=== PATIENT | male | born 1995 | race Hispanic/Latino ===

== ENCOUNTER 2018-09-25 03:15 | Inpatient (IN) | payer BC ==
[2018-09-25] MEDS ORDERED: Fentanyl 100 MCG/2 ML VIAL ONE ×2 (03:19→12:16)
[2018-09-25 03:40] LABS: #Eosinphils 0.2 thou/uL (0.0-0.7); #Lymphocytes 2.6 thou/uL (1.20-3.40); #Monocytes 1.1 thou/uL (0.11-0.59); #Neutrophils 9.4 thou/uL (1.40-6.50); %Basophils 0.2 % (0.0-1.0); %Eosinophils 1.4 % (0.0-10.0); %Lymphocytes 19.6 % (21.0-51.0); %Monocytes 8.3 % (0.0-10.0); %Neutrophils 70.6 % (42.0-75.0); Hemoglobin 15.6 g/dL (14.0-18.0); Mean Corpuscular HGB CONC 33.8 g/dL (32.0-36.0); Mean Corpuscular Hemoglobin 27.9 pg (27.0-31.0); Mean Corpuscular Volume 82.6 fL (78.0-98.0); Mean Platelet Volume 7.4 fL (7.4-10.4); Platelet Count 280 thou/uL (130-400); RBC Distribution Width 12.2 % (11.5-14.5); Red Blood Cell (RBC) Count 5.59 mill/uL (4.70-6.10); White Blood Cell (WBC) Count 13.3 thou/uL (4.8-10.8)
[2018-09-25] MEDS ORDERED: Ketamine 50 MG/ML (10ML VIAL) ONE (03:52)
[2018-09-25] MEDS ORDERED: Propofol 500 MG/50 ML VIAL ONE (03:52)
[2018-09-25 04:04] LABS: ALT (SGPT) 12 U/L (8-55); AST (SGOT) 18 U/L (5-34); Albumin 4.7 g/dL (3.5-5.0); Alcohol Less than 10 mg/dL (Less than 10); Alkaline Phosphatase 85 U/L (40-150); Anion Gap 15 mmol/L (10-20); BUN (Urea Nitrogen) 17 mg/dL (8.9-20.6); Bilirubin, Total 0.3 mg/dL (0.2-1.2); Calc. Creatinine Clearance 0 mL/min (70-130); Carbon Dioxide 23 mmol/L (22-29); Chloride 106 mmol/L (98-107); Estimated GFR-MDRD 82; Globulin 2.7 g/dL (2.4-3.5); Glucose 155 mg/dL (70-105); Potassium 3.5 mmol/L (3.5-5.1); Protein, Total 7.4 g/dL (6.0-8.3); Sodium 140 mmol/L (136-145)
[2018-09-25] MEDS ORDERED: Ketorolac Tromethamine 30 MG/ML VIAL ONE (06:26)
[2018-09-25] MEDS ORDERED: Ondansetron ODT 4 MG TAB PO PRN (06:26)
[2018-09-25] MEDS ORDERED: hydrALAZINE 20 MG/ML VIAL SLOW IVP PRN (06:26)
[2018-09-25] MEDS ORDERED: Dextrose 50% Abboject 50 ML SYRINGE SLOW IVP PRN (06:26)
[2018-09-25] MEDS ORDERED: Ondansetron PF 4 MG/2 ML Vial IVP PRN (06:26)
[2018-09-25] MEDS ORDERED: Dextrose 5% in Water 1,000 ML IV PRN (06:26)
[2018-09-25] MEDS ORDERED: Acetaminophen 500 MG TAB PO SCH (06:30)
[2018-09-25 06:54] LABS: Phosphorus 2.6 mg/dL (2.3-4.7)
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
[2018-09-25] MEDS: Sodium Chloride 0.9% 1,000 ML IV SCH ×3 (07:30→23:15)
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
--- NOTE | 2018-09-25 08:16 | RAD ---
Right hip 2 views HISTORY: Fracture or dislocation. Reduction. FINDINGS: Right femoral head now in good position related to the acetabulum. Fracture of the superior lateral wall not well demonstrated on this exam. No displacement apparent. IMPRESSION: Interval reduction of the right hip dislocation.
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
[2018-09-25 08:38] LABS: Lactic Acid 2.9 mmol/L (0.5-2.2)
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
[2018-09-25] MEDS ORDERED: CEFAZOLIN 2 GM, Admixture Fee 1 EACH in Sodium Chloride 0.9% 100 ML IVPB SCH (09:00)
[2018-09-25] MEDS: Morphine 2 MG/ML SYRINGE SLOW IVP PRN ×2 (10:20→16:34)
[2018-09-25 11:12] VITALS: BMI 30.2
[2018-09-25] MEDS: Senokot S 8.6-50 MG TAB PO SCH ×2 (11:16→20:52)
[2018-09-25] MEDS: Polyethylene Glycol 3350 17 GM Packet PO SCH (11:16)
[2018-09-25] MEDS ORDERED: ceFAZolin Sodium (SDC) 2 GM/100 ML BAG ONE (11:49)
[2018-09-25] MEDS ORDERED: Neomycin-Polymyxin 1 ML AMP ONE (12:11)
[2018-09-25] MEDS ORDERED: Iopamidol 370 76% 100 ML VIAL ONE (13:19)
[2018-09-25] MEDS ORDERED: Promethazine HCl 25 MG/ML VIAL IM PRN (15:38)
[2018-09-25] MEDS ORDERED: PACU-Morphine 4MG/ML VIAL SLOW IVP PRN (15:38)
[2018-09-25] MEDS ORDERED: Meperidine HCl/PF 25 MG/ML VIAL SLOW IVP PRN (15:38)
[2018-09-25] MEDS ORDERED: Morphine Sulfate 2 MG/ML SYRINGE SLOW IVP PRN (15:38)
[2018-09-25] MEDS ORDERED: Ondansetron HCl/PF 4 MG/2 ML Vial IVP PRN (15:38)
[2018-09-25] MEDS ORDERED: Promethazine HCl 25 MG/ML VIAL SLOW IVP PRN (15:38)
[2018-09-25] MEDS ORDERED: HYDROmorphone 2 MG/ML VIAL SLOW IVP PRN (15:38)
[2018-09-25] MEDS ORDERED: Meperidine HCl/PF 25 MG/ML VIAL ONE (15:40)
--- NOTE | 2018-09-25 17:41 | RAD ---
TWO INTRAOPERATIVE FLUOROSCOPIC IMAGES RIGHT HIP: 09/25/18 HISTORY: ORIF right acetabulum. COMPARISON: Two views right hip on 09/25/[address] pelvis on 09/25/18. FINIDNGS\IMPRESSION: There are now postsurgical changes related to internal fixation of the right acetabulum with a mallea ble plate and screws now transfixing the right acetabulum. Correlation with intraoperative findings i s recommended. FLUOROSCOPY: Total fluoroscopy time is 12.7 second with total dose of 2.25 mGy. POS: ROWAN
[2018-09-25] MEDS: Ibuprofen 800 MG TAB PO SCH ×2 (18:23→20:53)
[2018-09-25] MEDS: Acetaminophen 500 MG TAB PO SCH ×2 (18:28→18:29)
[2018-09-25] MEDS: traMADol HCl 50 MG TAB PO SCH ×2 (18:28→18:29)
[2018-09-25] MEDS: Cyclobenzaprine 10 MG TAB PO PRN (20:54)
[2018-09-25] MEDS ORDERED: CEFAZOLIN 2 GM, IV Admixture Fee-Chemo 1 UNITS in Sodium Chloride 0.9% 100 ML IVPB SCH (22:00)
[2018-09-26] MEDS: traMADol HCl 50 MG TAB PO SCH ×4 (00:05→18:28)
[2018-09-26] MEDS: Acetaminophen 500 MG TAB PO SCH ×4 (00:06→18:27)
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
[2018-09-26] MEDS: Sodium Chloride 0.9% 1,000 ML IV SCH ×2 (01:00→11:25)
[2018-09-26] MEDS ORDERED: CEFAZOLIN 2 GM, Admixture Fee 1 EACH in Sodium Chloride 0.9% 100 ML IVPB SCH (06:00)
[2018-09-26] MEDS: Ibuprofen 800 MG TAB PO SCH (06:22)
[2018-09-26] MEDS: Aspirin 81 mg Enteric Coated Tablet PO SCH ×2 (09:24→20:00)
[2018-09-26] MEDS: Senokot S 8.6-50 MG TAB PO SCH ×2 (09:25→20:01)
[2018-09-26] MEDS: Polyethylene Glycol 3350 17 GM Packet PO SCH (09:25)
--- NOTE | 2018-09-26 11:19 | RAD ---
XR Pelvis Minimum 3 Views History: Fracture Comparison: CT prior day Findings: Anterior column is in place. The posterior column fixation screw. 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 Impression: Improved alignment posterior acetabular wall fracture.
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
[2018-09-26] MEDS: traMADol HCl 50 MG TAB PO PRN (20:01)
[2018-09-26] MEDS: Cyclobenzaprine 10 MG TAB PO PRN (20:03)
[2018-09-27] MEDS: traMADol HCl 50 MG TAB PO SCH ×4 (00:36→18:42)
[2018-09-27] MEDS: Acetaminophen 500 MG TAB PO SCH ×4 (00:36→18:43)
[2018-09-27] MEDS: Cyclobenzaprine 10 MG TAB PO PRN ×2 (06:42→20:29)
[2018-09-27] MEDS: traMADol HCl 50 MG TAB PO PRN (06:42)
[2018-09-27] MEDS: Senokot S 8.6-50 MG TAB PO SCH ×2 (08:24→20:29)
[2018-09-27] MEDS: Aspirin 81 mg Enteric Coated Tablet PO SCH ×2 (08:24→20:29)
[2018-09-27] MEDS: Polyethylene Glycol 3350 17 GM Packet PO SCH (08:24)
[2018-09-27] MEDS ORDERED: Scopolamine 1.5 mg/72 hour Patch TD SCH (11:00)
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
[2018-09-27] MEDS: Ibuprofen 600 MG TAB PO SCH ×2 (14:59→20:29)
[2018-09-28] MEDS: traMADol HCl 50 MG TAB PO SCH ×3 (00:17→12:39)
[2018-09-28] MEDS: Acetaminophen 500 MG TAB PO SCH ×3 (00:18→12:38)
[2018-09-28] MEDS: Ibuprofen 600 MG TAB PO SCH (06:05)
[2018-09-28] MEDS: Polyethylene Glycol 3350 17 GM Packet PO SCH (09:24)
[2018-09-28] MEDS: Senokot S 8.6-50 MG TAB PO SCH (09:24)
[2018-09-28] MEDS: Aspirin 81 mg Enteric Coated Tablet PO SCH (09:25)
[2018-09-28 11:01] VITALS: BP 117/74; TEMP 98.9
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
== END 2018-09-28 12:45 | disposition home or self-care (01) | DRG 481 ==
LOC: ERS 03:15 → OBSVTOIN 06:26 → SJJU 06:26
PROVIDERS: ADMIT Surgery; ATTEND Surgery
PROC: 0QS404Z Reposition Right Acetabulum with Internal Fixation Device, Open Approach (ICD-10-PCS; principal; 2018-09-26)
PROC: 0SQ90ZZ Repair Right Hip Joint, Open Approach (ICD-10-PCS; 2018-09-26)
PROC: 0SS9XZZ Reposition Right Hip Joint, External Approach (ICD-10-PCS; 2018-09-26)
DX: S32.421A Displaced fracture of posterior wall of right acetabulum, initial encounter for closed fracture (principal); S73.014A Posterior dislocation of right hip, initial encounter; V89.2XXA Person injured in unspecified motor-vehicle accident, traffic, initial encounter; W22.19XA Striking against or struck by other automobile airbag, initial encounter; Y93.89 Activity, other specified; Y92.9 Unspecified place or not applicable; Y99.9 Unspecified external cause status; S73.191A Other sprain of right hip, initial encounter
CPT/HCPCS: 27250; 36415; 70450; 71045; 71260; 72125; 72170; 72190; 74177; 76000; 80053; 80307; 83605; 83735; 84100; 85025; 86850; 86900; 86901; 96361; 96374; 96375; 99152; C1713; G0390; J0131; J0690; J1885; J2175; J2270; J2405; J2704; J3010; J3490